=== PATIENT | male | born 1955 | race Caucasian/White ===

== ENCOUNTER 2016-09-11 09:28 | Day surgery (SDC) | payer OTHER ==
[~2016-09-11] VITALS: Ht 190.5 cm; Wt 99.8 kg
[2016-09-11] VITALS (10 sets, daily range): BP systolic 131–172; BP diastolic 82–94; PULSE 55–67; RESP 9–14; O2SAT 95–99
[~2016-09-11 09:28] MED LIST: Acetaminophen IV 1,000 MG in IV Premix 1 EACH IV ONE; HYDR-4003 PO; Lactated Ringer's 1,000 ML IV SCH; NAPR220C16 PO; ROSU5TAB PO; excedrin
[2016-09-11] MEDS ORDERED: Propofol 10,000 mCg/mL 20 mL Inj ONE (09:29)
[2016-09-11] MEDS ORDERED: Dexamethasone 4 mg/mL Inj ONE (09:29)
[2016-09-11] MEDS ORDERED: fentaNYL-PF 50 mCg/mL 2 mL Inj ONE (09:29)
[2016-09-11] MEDS ORDERED: Ondansetron 2 mg/mL 2 mL Inj ONE (09:29)
--- NOTE | 2016-09-11 10:14 | PCM.HPANE ---
Patient Data Date of Service: September 11, 2016 Surgeon Admitting Provider: Attending Provider:Siva Grajeda MD Primary Care Physician:Tahira Clemons MD Other Provider:Fanny Tran Anesthesia Reason for Visit Left Kidney Stone Ht/WT & BMI Height (Feet): 6 Height (Inches): 3 Weight (Kilograms): 99.79 Body Mass Index 27.00 Allergies Coded Allergies: niacin (Verified Allergy, Intermediate, HIVES AND OVERHEATING, 03/13/16) Past Anesthesia History Anesthesia History: Denies:: Anesthesia Reactions, Malignant Hyperthermia Diabetes History Hx Diabetes?: No MRSA MRSA: No Medications Hypertension Medication: No Home Meds Incl Beta Wade: No Reported Medications Naproxen Sodium 220 Mg [id number] Mg PO BID PRN For Pain Ref 0 09/09/16 Rosuvastatin Calcium (Crestor)5 Mg Tablet5 Mg PO DAILY 30 Days Ref 0 09/09/16 [excedrin ] extra strength No Conflict Check PRN For Pain 09/09/16 Hydrocodone-Acetaminophen 5-325 mg 1 Each Tablet1 Tablet PO Q4H PRN For Pain Ref 0 09/09/16 Discontinued Reported Medications Rosuvastatin Calcium (Crestor)5 Mg Tablet5 Mg PO DAILY 30 Days Ref 0 03/13/16 Cyanocobalamin/FA/Pyridoxine (B Complex-Folic Acid Tablet)1 Each Tablet1 Each PO DAILY 03/13/16 Naproxen Sodium 220 Mg [id number] Mg PO BID PRN For Pain Ref 0 03/12/16 [Excedrin] No Conflict Check Po Prn 03/12/16 History History of ENT Problems?: No HEENT History: Denies:: TMJ Denture Type: None Teeth Condition: Within Normal Limits Hx of Heart Problems?: No Cardiovascular History: Denies:: Chest Pain Heart Murmur Hypertension (hld) Irregular Heartbeat Hx of Respiratory Problem?: No Respiratory History: Denies:: Asthma COPD Cough Emphysema Oxygen Administration Use of C-PAP Machine Use of Inhalers / NEBS Hx Neurologic Problems?: No Neurological History: Denies:: CVA Dizziness Headaches Multiple Sclerosis Parkinson's Disease Seizures Hx of GI Problems?: No Hx of Problems?: Yes Genitourinary History: Positive for:: Kidney Stones (left stone current problem, prior hx of ESWL 04/2016) Denies:: Urinary Tract Infection Male Hx: Positive for:: Prostate Problems (RRPPL) Testicular Surgery (vasectomy) Skin History: Denies:: History Skin Disorders? Pressure Ulcers Hx Musculoskeletal Problems?: Yes Musculoskeletal History: Positive for:: Back Injury (hx of herniated L5S1) Denies:: Joint Replacement Myasthenia Gravis Hx of Psycho/Social Problems?: No Psycho Social History: Denies:: Anxiety Bipolar Disorder Hx Depression Hx Surgeries?: Yes (PROSTATECTOMY, BACK CYST, CIRCUMCISION, VASECTOMY) Hx Any Other Health Problems?: Yes Other History: Positive for:: Cancer (prostate) Hospitalization (SURGERY) Denies:: Thyroid Disease Hx Diabetes: No Hx Alcohol Use: YesAlcoholic Drinks Per Day: occasionallyHx Substance Use: No Smoking Status: Never Smoker Have You Smoked inLast 12 mo: No Stop/Bang S-Snoring: Do You Snore Loudly: Yes T-Tired: feel tired, fatigued: No O-Obsered: Observed not breath: No P-Blood Pressure: treated: No B- Body Mass Index > 35 kg/m2: No A- Age over 50: Yes N- Neck Large Circumference: No G- Gender Male: Yes DOT Total Score: 3 DOT Risk Assessment: High Risk, =/>3 Yes DOT Category 4 OutPt Procedure: Yes Risk Assessment Category Category 1A: Patient has history of documented sleep apnea, and HAS NOT received any narcotic, sedative or anesthesia administration during this stay. Category 1B: Patient has history of documented sleep apnea, and HAS received any narcotic , sedative or anesthesia administration during this stay Category 2: Patient has SUSPECTED Obstructive Sleep Apnea, and HAS received any narcotic , sedative or anesthesia administration during this stay. Category 3: Patient has SUSPECTED Obstructive Sleep Apnea and HAS NOT received narcotic, sedative or anesthesia administration during this stay. Category 4: Outpatient in Procedural Areas with known sleep apnea or who screen positive for High Risk via the STOP/BANG questionnaire. Exam Exam General Appearance: Alert, Oriented X3, Cooperative, No Acute Distress HEENT/AIRWAY: MP 2 Lungs: Clear to Auscultation, Normal Air Movement Heart: Exam Unremarkable, Regular Rate/Rhythm, No Murmurs/Rubs/Gallops Plan Impression Patient chart reviewed, patient interviewed and anesthestic plan with risks, benefits, and alternatives discussed, and informed consent obtained. NPO per Anesth. Guidelines: Yes ASA Physical Status: ASA2 Mod Systemic Disease Anesthetic Plan: GA Bene/Risks/Altern/Consents: Yes HP Complete Prior to Induction: Yes Bakari Yung MD September 11, 2016 10:13
[2016-09-11] MEDS ORDERED: Lactated Ringer's 1,000 ML IV ONE (10:39)
--- NOTE | 2016-09-11 10:54 | DRSVH ---
PROCEDURE: X-RAY KUB ([id number]) INDICATIONS: KIDNEY STONE TECHNIQUE: One view of the abdomen acquired. COMPARISON: [facility], CR, XR KUB, 05/20/2016, 11:01. [facility], CR, XR KU B, 04/11/2016, 10:13. [facility], CR, XR KUB, 03/13/2016, 12:28. [facility], CR, XR ABDOMEN 1V SUPINE, 02/21/2016, 8:42 AM. [facility], CR, XR KUB, 08/06/2016, 8:3 5. FINDINGS: Surgical changes and devices: None. Bowel: Bowel gas pattern is normal. Soft tissues: 7 mm calcification is seen projected over the mid lower pole of the left kidney. Multi ple pelvic calcifications redemonstrated, several which likely represent pelvic phleboliths but dista l left ureteral calculi cannot be excluded. Bones: No suspicious bony lesions. IMPRESSION: 1. 7 mm calcification is seen projected over the left kidney. 2. Several pelvic calcifications present likely related to phleboliths but distal ureteral stones can not entirely be excluded. Recommend clinical correlation and if indicated CT KUB could be performed. Dictated by: Chon HERRERA Interpreted: Migue Lewis MD on 09/11/2016 at 10:53 Transcribed by: BIRD on 09/11/2016 at 10:54 Approved by: Migue Lewis M.D. on 09/11/2016 at 11:07
[2016-09-11] MEDS ORDERED: HYDROmorphone 1 mg/mL Inj IVPUSH PRN (12:25)
[2016-09-11] MEDS ORDERED: EPHEDrine Sulfate 50 mg/mL Inj IM PRN (12:25)
[2016-09-11] MEDS ORDERED: Atropine 0.4 mg/mL Inj IVPUSH PRN (12:25)
[2016-09-11] MEDS ORDERED: EPHEDrine Sulfate 50 mg/mL Inj IVPUSH PRN (12:25)
[2016-09-11] MEDS ORDERED: Phenylephrine 10,000 mCg/mL Inj IVPUSH PRN (12:25)
[2016-09-11] MEDS ORDERED: Labetalol 5 mg/mL 4 mL Inj IV PRN (12:25)
[2016-09-11] MEDS ORDERED: hydrALAZINE 20 mg/mL Inj IVPUSH PRN (12:25)
[2016-09-11] MEDS ORDERED: fentaNYL-PF 50 mCg/mL 2 mL Inj IVPUSH PRN (12:25)
[2016-09-11] MEDS ORDERED: Lactated Ringer's 500 ML IV PRN (12:25)
[2016-09-11] MEDS ORDERED: MetoCLOpramide 5 mg/mL 2 mL Inj IVPUSH PRN (12:25)
[2016-09-11] MEDS ORDERED: Lactated Ringer's 1,000 ML IV SCH (12:25)
[2016-09-11] MEDS ORDERED: Ondansetron 2 mg/mL 2 mL Inj IVPUSH PRN (12:25)
[2016-09-11] MEDS ORDERED: Furosemide 10 mg/mL 2 mL Inj IV ONE (12:35)
--- NOTE | 2016-09-11 13:35 | PCM.ANEP1 ---
Post Anesthesia Phase 1 PACU Phase 1 Assessment Date of Service: September 11, 2016 Vital Signs Vital Signs Date Time Temp Pulse Resp B/P Pulse Ox O2 Delivery O2 Flow Rate FiO2 09/11/16 13:20 36.3 57 13 142/85 97 Room Air 09/11/16 13:15 56 10 154/88 97 Room Air 09/11/16 13:10 36.4 55 10 155/90 96 Room Air 09/11/16 13:00 63 13 156/85 95 Room Air 09/11/16 12:55 64 10 135/90 95 Room Air 09/11/16 12:50 67 11 141/88 95 Room Air 09/11/16 12:45 62 11 131/82 99 Room Air 09/11/16 12:40 36.6 61 9 135/84 99 Simple Mask 8 09/11/16 10:30 36.4 67 14 152/94 98 Room Air Anesthetic Administered: GA Level of Alertness: Awake, talking LEPE's with Equal Strength: Yes Pain: No Nausea or Vomiting: No Cardiovascular Function and Hy: Yes Oxygen Delivery: Room Air Lungs: Clear to Auscultation, Normal Air Movement Dermatome Level: Full Sensation Complications: No Follow up Care: No Bakari Yung MD September 11, 2016 13:35
--- NOTE | 2016-09-11 22:35 | OP ---
[address] [address] OPERATIVE REPORT PATIENT: ANAM CRENSHAW : 1955 MR#: [id number] ADMIT: 09/11/2016 JOB ID: [id number] DATE OF SURGERY: 09/11/2016 SURGEON: Siva Grajeda MD PREOPERATIVE DIAGNOSIS(ES): 1. A 7 mm left renal calculus. 2. Left renal colic. POSTOPERATIVE DIAGNOSIS(ES): 1. A 7 mm left renal calculus. 2. Left renal colic. OPERATION PERFORMED: Left extracorporeal shock wave lithotripsy (1700 shocks times maximal power level 5.0). ANESTHESIOLOGIST: Bakari Yung MD. PROCEDURE SUMMARY: The patient was positioned supine on the lithotripsy gurney and the above-described stone was localized in the X, Y and Z plane. Lithotripsy was then commenced at minimal power level and gradually increased to maximum power level. The stone and its fragments were relocalized numerous times throughout the case using C-arm radiography. The procedure was then terminated. The patient was awakened, transferred to the gurney and transferred to the recovery area awake in stable condition. The patient tolerated the procedure well.
== END 2016-09-11 23:59 | disposition home or self-care (01) ==
LOC: SAS 09:28
PROVIDERS: ATTEND Specialist
DX: N20.0 Calculus of kidney (principal); E78.00 Pure hypercholesterolemia, unspecified; Z85.46 Personal history of malignant neoplasm of prostate; Z90.79 Acquired absence of other genital organ(s)
CPT/HCPCS: 50590; 74000; J1100; J1940; J2405; J3010; J7120